=== PATIENT | female | born 1955 | race Caucasian/White ===

== ENCOUNTER 2017-09-24 06:06 | Day surgery (SDC) | payer BC ==
[2017-09-23 16:10] VITALS: BMI 33.2
[2017-09-24] MEDS ORDERED: fentaNYL CITRATE 250 MCG/5 ML VIAL ONE ×2 (07:20→09:20)
[2017-09-24] MEDS ORDERED: SUCCINYLCHOLINE CHLORIDE 200 MG/10 ML VIAL ONE ×2 (07:20→07:49)
[2017-09-24] MEDS ORDERED: PROPOFOL 20 ML ONE ×3 (07:20→07:49)
[2017-09-24] MEDS ORDERED: ROCURONIUM BROMIDE 50 MG/5 ML VIAL ONE (07:21)
[2017-09-24] MEDS ORDERED: MIDAZOLAM HCL 2 MG/2 ML SINGLE DOSE VIAL ONE ×2 (07:21→07:49)
[2017-09-24] MEDS ORDERED: DEXAMETHASONE SOD PHOSPHATE 4 MG/1 ML VIAL ONE (07:21)
[2017-09-24] MEDS ORDERED: LIDOCAINE HCL/PF 2% SDV 5ML VIAL ONE (07:21)
--- NOTE | 2017-09-24 07:31 | HP ---
History & Physical Update - History History: No Change (H&P no changes)
[2017-09-24] MEDS ORDERED: ceFAZolin SODIUM 1 GM VIAL ONE (08:29)
[2017-09-24] MEDS ORDERED: IBUPROFEN 600 MG TABLET (FP) PO PRN (08:43)
[2017-09-24] MEDS ORDERED: ONDANSETRON 4 MG/2 ML VIAL IVPUSH PRN (08:43)
[2017-09-24] MEDS ORDERED: oxyCODONE HCL 5 MG TABLET PO PRN (08:43)
[2017-09-24] MEDS ORDERED: IBUPROFEN 800 MG/8 ML IJ IVPB PRN (08:43)
[2017-09-24] MEDS ORDERED: ELECTROLYTE-148 SOLN 1,000 ML IV SCH (08:45)
[2017-09-24] MEDS ORDERED: KETOROLAC TROMETHAMINE 30 MG/1 ML VIAL ONE (09:43)
[2017-09-24 10:01] VITALS: TEMP 97.7
[2017-09-24 10:51] VITALS: BP 139/71; PULSE 70
--- NOTE | 2017-09-25 11:10 | OP ---
DATE OF OPERATION: 09/24/2017 PREOPERATIVE DIAGNOSIS: Thickened endometrium. POSTOPERATIVE DIAGNOSIS: Submucous myoma. SURGEON: Brendon Escobar MD ANESTHESIA: General. ESTIMATED BLOOD LOSS: 10 mL. PROCEDURE: Hysteroscopy, dilatation and curettage. DESCRIPTION OF PROCEDURE: The patient was taken to the operating room, and under adequate general anesthesia, abdomen and perineum were prepped and draped. Examination under anesthesia revealed external genitalia to be normal. Vagina was atrophic. Cervix was clean, no gross lesion. Uterus was normal-sized, retroverted. Adnexa, no masses were palpable. Then, with a weighted speculum in the vagina, anterior lip of the cervix was grasped with a single-tooth tenaculum. Cervix was stenotic, difficulty dilating, but after the dilation with Hegar dilator, hysteroscope was introduced. Visualization of the endocervical canal appeared to be normal. Endometrium was atrophic, but had a 2-cm submucous myoma at the fundal area of the uterus. Both cornua region was visualized. No other abnormality was seen. Then, the hysteroscope was withdrawn, and the cervix was further dilated with Hegar dilator, and then endometrial curetting was done. A small amount of tissue was obtained. Patient tolerated the procedure well, left the OR in good condition. BRENDON ESCOBAR M.D. [id number]
--- NOTE | 2017-09-27 13:33 | PATH ---
Surgical Pathology Report Patient Name: PIERRE CORNELIUS [facility]. Rec. #: [id number] /Age/Gender: 1955 (Age: 61) / F Account: [id number] Location: [facility] SURGICAL Taken: 09/24/2017 Received: 09/24/2017 Reported: 09/27/2017 Physicians: Brendon Escobar M.D. Specimen(s) Received ENDOMETRIAL CURETTINGS Clinical History Thickened endometrium Final Diagnosis ENDOMETRIAL CURETTINGS: PREDOMINATE BLOOD MATERIAL. SCANTY SUPERFICIAL INACTIVE/WEAKLY PROLIFERATIVE ENDOMETRIAL TISSUE. SEPARATE SMOOTH MUSCLE AND FIBROUS TISSUE WITHOUT EPITHELIAL LINING, ENDOCERVICAL GLANDS, AND SQUAMOUS EPITHELIUM WITH NO DIAGNOSTIC ABNORMALITIES. COMMENT: CLINICAL CORRELATION IS RECOMMENDED. Electronically Signed Jelena Baker M.D. Gross Description Received in formalin labeled "endometrial curettings," is a 0.6 x 0.6 x 0.2 cm aggregate of leong brown soft tissue fragments. The formalin is filtered and the specimen is entirely submitted in one cassette. /09/24/2017 [facility]09/24/2017
== END 2017-09-24 10:45 | disposition home or self-care (01) ==
LOC: JASU-SURG 06:06
PROVIDERS: ATTEND Obstetrics & Gynecology
PROC: 0UDB7ZX Extraction of Endometrium, Via Natural or Artificial Opening, Diagnostic (ICD-10-PCS; principal; 2017-09-24 08:00)
PROC: 0UJD8ZZ Inspection of Uterus and Cervix, Via Natural or Artificial Opening Endoscopic (ICD-10-PCS; 2017-09-24 08:00)
DX: D25.0 Submucous leiomyoma of uterus (principal); N85.00 Endometrial hyperplasia, unspecified; I10 Essential (primary) hypertension; E11.9 Type 2 diabetes mellitus without complications; Z79.84 Long term (current) use of oral hypoglycemic drugs
CPT/HCPCS: 82962; 88305-TC; 94760

== ENCOUNTER 2020-10-29 04:23 | Day surgery (SDC) | payer BC ==
[2020-10-28 13:02] VITALS: BMI 32.2
[2020-10-29] MEDS ORDERED: MIDAZOLAM HCL 2 MG/2 ML SINGLE DOSE VIAL ONE (08:57)
[2020-10-29] MEDS ORDERED: PROPOFOL 20 ML ONE (08:57)
[2020-10-29] MEDS ORDERED: AMPICILLIN SODIUM 2 GM VIAL ONE (09:27)
[2020-10-29] MEDS ORDERED: AMPICILLIN SODIUM 2 GM VIAL IVPB ONE (09:27)
[2020-10-29] MEDS ORDERED: GENTAMICIN SO4 80 MG/2 ML VIAL ONE (09:28)
[2020-10-29] MEDS ORDERED: GENTAMICIN SO4 80 MG/2 ML VIAL IVPB ONE (09:30)
[2020-10-29] MEDS ORDERED: ONDANSETRON 4 MG/2 ML VIAL IVPUSH PRN (10:11)
[2020-10-29] MEDS ORDERED: IBUPROFEN 600 MG TABLET (FP) PO PRN (10:11)
[2020-10-29] MEDS ORDERED: IBUPROFEN 800 MG/8 ML IJ IVPB PRN (10:11)
[2020-10-29] MEDS ORDERED: oxyCODONE HCL 5 MG TABLET PO PRN (10:11)
[2020-10-29] MEDS ORDERED: ELECTROLYTE-148 SOLN 1,000 ML IV SCH (10:15)
[2020-10-29] MEDS ORDERED: DEXAMETHASONE SOD PHOSPHATE 4 MG/1 ML VIAL ONE (11:01)
[2020-10-29] MEDS ORDERED: ONDANSETRON 4 MG/2 ML VIAL ONE (11:01)
[2020-10-29] MEDS ORDERED: KETOROLAC TROMETHAMINE 30 MG/1 ML VIAL ONE (11:01)
[2020-10-29] MEDS ORDERED: LACTATED RINGERS SOLUTION 1,000 ML IV SCH (11:15)
[2020-10-29 12:53] VITALS: BP 133/70; PULSE 85; TEMP 97.6
== END 2020-10-29 13:00 | disposition home or self-care (01) ==
LOC: JASU-SURG 04:23
PROVIDERS: ATTEND Obstetrics & Gynecology
PROC: 0UB98ZZ Excision of Uterus, Via Natural or Artificial Opening Endoscopic (ICD-10-PCS; principal; 2020-10-29 09:00)
PROC: 0UB98ZX Excision of Uterus, Via Natural or Artificial Opening Endoscopic, Diagnostic (ICD-10-PCS; 2020-10-29 09:00)
DX: N95.0 Postmenopausal bleeding (principal); D25.0 Submucous leiomyoma of uterus; N84.0 Polyp of corpus uteri; E11.9 Type 2 diabetes mellitus without complications; I10 Essential (primary) hypertension
CPT/HCPCS: 82962; 88305-TC; 94760